=== PATIENT | female | born 1985 | race Caucasian/White ===

== ENCOUNTER 2019-01-12 15:43 | Emergency (ER) | payer OTHER ==
[2019-01-12 15:54] VITALS: BP 111/72
[2019-01-12] MEDS ORDERED: Ketorolac 60 MG/2 ML SDV IM ONE (16:01)
[2019-01-12] MEDS ORDERED: diazePAM 5 MG/ML MDV IV ONE (16:02)
[2019-01-12] MEDS ORDERED: Morphine 2 MG/ML Syringe IVPUSH ONE (16:02)
--- NOTE | 2019-01-12 16:07 | EDM.PDOC ---
ED HPI GENERAL MEDICAL PROBLEM - General Chief Complaint: Upper Extremity Injury/Pain Stated Complaint: SHOULDER INJURY Time Seen by Provider: 01/12/19 15:45 Source of Information: Reports: Patient History Limitations: Reports: No Limitations - History of Present Illness INITIAL COMMENTS - FREE TEXT/NARRATIVE: HISTORY AND PHYSICAL: History of present illness: Patient is a 33-year-old female presents to the ED today with concern of right shoulder dislocation. Patient states she has a history of frequent shoulder dislocations and has had 2 surgeries to prevent it from getting dislocated. Patient states normally goes back in within a few minutes. Patient states that she had waited about an hour before coming to the ED with it being dislocated hoping it would go in by itself. Patient states she went to her sweat shirt on and felt it pop out of place. Patient denies any injury or trauma. Patient denies fever, chills, chest pain, shortness of breath, or cough. Denies headache, neck stiff ness, change in vision, syncope, or near syncope. Denies nausea, vomiting, abdominal pain, diarrhea, constipation, or dysuria. Has not noted any blood in urine or stool. Patient has been eating and drinking appropriately. Review of systems: As per history of present illness and below otherwise all systems reviewed and negative. Past medical history: As per history of present illness and as reviewed below otherwise noncontributory. Surgical history: As per history of present illness and as reviewed below otherwise noncontributory. Social history: See social history for further information Family history: As per history of present illness and as reviewed below otherwise noncontributory. Physical exam: General: Patient is alert, oriented, and in no acute distress. Patient sitting comfortably on exam table. HEENT: Atraumatic, normocephalic, pupils equal and reactive bilaterally, negative for conjunctival pallor or scleral icterus, mucous membranes moist, TMs normal bilaterally, throat clear, neck supple, nontender, trachea midline. No drooling or trismus noted. No meningeal signs. No hot potato voice noted. Lungs: Clear to auscultation, breath sounds equal bilaterally, chest nontender. Heart: S1S2, regular rate and rhythm without overt murmur Abdomen: Soft, nondistended, nontender. Negative for masses or hepatosplenomegaly. Negative for costovertebral tenderness. Pelvis: Stable nontender. Genitourinary: Deferred. Rectal: Deferred. Skin: Intact, warm, dry. No lesions or rashes noted. Extremities: Exam of shoulder limited due to pain. Atraumatic, negative for cords or calf pain. Neurovascular unremarkable. There is an anterior slip of the right humeral head with severe pain to palpation. ROM unable to be assessed due to pain. Radial pulses grossly intact with capillary refill less than 2 seconds Neuro: Awake, alert, oriented. Cranial nerves II through XII unremarkable. Cerebellum unremarkable. Motor and sensory unremarkable throughout. Exam nonfocal. Notes: Dr. Rivera directly involved in patient care. While waiting imaging, patient's shoulder had relocated by itself. Patient now has full range of motion without difficulty in no obvious deformities of the shoulder. Discussed the importance for follow-up with a primary care provider or orthopedic provider. Voices understanding and is agreeable to plan of care. Denies any further questions or concerns at this time. Diagnostics: shoulder XR Therapeutics: Morphine, Valium (were not given due to patients relocation of shoulder on its own), shoulder sling Prescription: None Impression: Right shoulder dislocation, resolved Plan: 1. Alternate ibuprofen and Tylenol as directed for pain and discomfort. 2. Follow-up with the primary care provider/orthopedic provider as discussed. Return to the ED as needed and as discussed. Definitive disposition and diagnosis as appropriate pending reevaluation and review of above. Right Shoulder Pain Score (Numeric/FACES): 10 - Related Data Allergies Allergy/AdvReac Type Severity Reaction Status Date / Time aluminum Allergy Rash Verified 01/12/19 15:54 latex Allergy Rash Verified 01/12/19 15:54 Home Meds: Home Meds . [No Known Home Meds] 01/12/19 [History] Past Medical History [employer] History: Reports: - Past Surgical History HEENT Surgical History: Reports: Tonsillectomy Female Surgical History: Reports: Tubal Ligation Musculoskeletal Surgical History: Reports: Shoulder Surgery Social & Family History - Family History Family Medical History: Noncontributory - Tobacco Use Smoking Status *Q: Current Every Day Smoker Years of Tobacco use: 1 Packs/Tins Daily: 0.5 - Caffeine Use Caffeine Use: Reports: Coffee, Tea - Recreational Drug Use Recreational Drug Use: No Review of Systems - Review of Systems Review Of Systems: ROS reveals no pertinent complaints other than HPI. ED EXAM, GENERAL - Physical Exam Exam: See Below (See dictation) Course - Vital Signs Last Recorded V/S: Last Vital Signs Temp 36.3 C 01/12/19 15:52 Pulse 114 H 01/12/19 15:52 Resp 22 H 01/12/19 15:52 BP 111/72 01/12/19 15:52 Pulse Ox 98 01/12/19 15:52 - Orders/Labs/Meds Orders: Active Orders 24 hr Category Date Time Status Shoulder Comp Rt [CR] Stat Exams 01/12/19 15:46 Taken Meds: Medications Discontinued Medications Generic Name Dose Route Start Last Admin Trade Name Freq PRN Reason Stop Dose Admin Diazepam 5 mg 01/12/19 16:02 01/12/19 16:36 Valium IV 01/12/19 16:03 Not Given ONETIME ONE Ketorolac Tromethamine 60 mg 01/12/19 16:01 01/12/19 16:35 Toradol IM 01/12/19 16:02 Not Given ONETIME ONE Morphine Sulfate 2 mg 01/12/19 16:02 01/12/19 16:35 Morphine IVPUSH 01/12/19 16:03 Not Given ONETIME ONE Orphenadrine Citrate 60 mg 01/12/19 16:01 01/12/19 16:35 Norflex IM 01/12/19 16:02 Not Given NOW STA Departure - Departure Time of Disposition: 16:43 Disposition: Home, Self-Care 01 Clinical Impression: Shoulder dislocation, recurrent Qualifiers: Laterality: right Qualified Code(s): M24.411 - Recurrent dislocation, right shoulder - Discharge Information Referrals: PCP,Unknown [Primary Care Provider] - Forms: ED Department Discharge Additional Instructions: The following information is given to patients seen in the emergency department who are being discharged to home. This information is to outline your options for follow-up care. We provide all patients seen in our emergency department with a follow-up referral. The need for follow-up, as well as the timing and circumstances, are variable depending upon the specifics of your emergency department visit. If you don't have a primary care physician on staff, we will provide you with a referral. We always advise you to contact your personal physician following an emergency department visit to inform them of the circumstance of the visit and for follow-up with them and/or the need for any referrals to a consulting specialist. The emergency department will also refer you to a specialist when appropriate. This referral assures that you have the opportunity for follow-up care with a specialist. All of these measure are taken in an effort to provide you with optimal care, which includes your follow-up. Under all circumstances we always encourage you to contact your private physician who remains a resource for coordinating your care. When calling for follow-up care, please make the office aware that this follow-up is from your recent emergency room visit. If for any reason you are refused follow-up, please contact the [facility] Emergency Department at and asked to speak to the emergency department charge nurse. [facility] [address] [place] [id number] [address] [facility] [address] [place] [address], [address] [place] [address] 1. Alternate ibuprofen and Tylenol as directed for pain and discomfort. 2. Follow-up with the primary care provider/orthopedic provider as discussed. Return to the ED as needed and as discussed. - My Orders Last 24 Hours: My Active Orders 01/12/19 15:46 Shoulder Comp Rt [CR] Stat - Assessment/Plan Last 24 Hours: My Active Orders 01/12/19 15:46 Shoulder Comp Rt [CR] Stat
--- NOTE | 2019-01-12 16:56 | CR ---
HISTORY: Shoulder pain with history of dislocations. FINDINGS: Two views of the shoulder are provided. There are no findings for fracture or dislocation. Mild arthritic change is noted of the acromioclavicular joint. Dictated by Suresh Bucio MD @ Jan 12 2019 4:54PM Signed by Dr. Suresh Bucio @ Jan 12 2019 4:55PM
== END 2019-01-12 17:08 | disposition home or self-care (01) ==
LOC: MW.ED 15:43
DX: M24.411 Recurrent dislocation, right shoulder (principal); F17.210 Nicotine dependence, cigarettes, uncomplicated; Z91.040 Latex allergy status; Z91.048 Other nonmedicinal substance allergy status
CPT/HCPCS: 73030-26-RT; 73030-RT; 99283; 99283-25

== ENCOUNTER 2023-02-23 18:05 | Emergency (ER) | payer MEDICAID ==
[2023-02-23] MEDS ORDERED: Ketorolac 30 MG/ML SDV IVPUSH ONE (18:20)
[2023-02-23] MEDS ORDERED: Sodium Chloride 0.9% 1,000 ML IV ONE (18:20)
[2023-02-23 19:03] LABS: BASOPHILS PERCENT AUTO 0.3 % (0.0-1.5); EOSINOPHILS ABSOLUTE AUTO 0.1 K/uL (0.0-0.7); EOSINOPHILS PERCENT AUTO 2.2 % (0.0-7.0); HEMATOCRIT 39.1 % (36.0-46.0); HEMOGLOBIN 12.8 g/dL (12.0-16.0); LYMPHOCYTES ABSOLUTE AUTO 2.2 K/uL (0.6-2.4); LYMPHOCYTES PERCENT AUTO 36.8 % (16.0-40.0); MEAN CORPUSCULAR HEMOGLOBIN 28.6 pg (27.0-32.0); MEAN CORPUSCULAR HGB CONC 32.7 g/dL (31.0-37.0); MEAN CORPUSCULAR VOLUME 87.3 fL (80.0-98.0); MONOCYTES ABSOLUTE AUTO 0.5 K/uL (0.0-0.8); NEUTROPHILS ABSOLUTE AUTO 3.1 K/uL (1.4-5.7); NEUTROPHILS PERCENT AUTO 52.7 % (48.0-80.0); PLATELET COUNT,PLT 224 K/uL (150-400); RED BLOOD CELL COUNT 4.48 M/uL (4.30-5.90); WHITE BLOOD CELL COUNT,WBC 5.85 K/uL (4.0-11.0)
[2023-02-23 19:20] LABS: APPEARANCE,URINE CLEAR; BILIRUBIN,URINE NEGATIVE (NEGATIVE); COLOR,URINE YELLOW; GLUCOSE,URINE NEGATIVE (NEGATIVE); KETONES,URINE NEGATIVE (NEGATIVE); LEUKOCYTE ESTERASE,URINE NEGATIVE (NEGATIVE); NITRITE,URINE NEGATIVE (NEGATIVE); OCCULT BLOOD,URINE NEGATIVE (NEGATIVE); PH,URINE 6.5 (5.0-8.0); PROTEIN,URINE NEGATIVE (NEGATIVE)
[2023-02-23 19:38] LABS: A/G RATIO 1.2 (0.9-1.6); ALBUMIN 3.7 g/dL (3.4-5.0); BILIRUBIN TOTAL 0.6 mg/dL (0.2-1.0); CALCIUM 8.2 mg/dL (8.5-10.1); CARBON DIOXIDE,CO2 26.5 mmol/L (21.0-32.0); CREATININE 0.7 mg/dL (0.6-1.0); EST CRCL DRUG DOSING (CG) 105.97 mL/min; POTASSIUM,K 3.6 mmol/L (3.5-5.1); PROTEIN TOTAL,TP 6.8 g/dL (6.4-8.2); TSH ULTRASENSITIVE 2.16 uIU/mL (0.36-3.74)
[2023-02-23] MEDS ORDERED: Acetaminophen/HYDROcodone 325-5 MG Tab PO ONE (20:01)
[2023-02-23 20:48] VITALS: BP 110/78; PULSE 74
== END 2023-02-23 20:14 | disposition home or self-care (01) ==
LOC: MW.ED 18:05
DX: R07.2 Precordial pain (principal); Z91.040 Latex allergy status; Z91.048 Other nonmedicinal substance allergy status
CPT/HCPCS: 36415; 71045; 80053; 81003; 81025; 84443; 84484; 85025; 96361; 96374; 99285; A9270; J1885; J7030; 93010; 99284